=== PATIENT | male | born 1945 | race Caucasian/White ===

== ENCOUNTER 2021-07-29 06:08 | Emergency (ER) | payer MEDICARE ==
[~2021-07-29] VITALS: Ht 172.7 cm; Wt 68.0 kg
[2021-07-29] MEDS ORDERED: TRADJENTA5 MG PO (06:20)
[2021-07-29] MEDS ORDERED: JARDIANCE10 MG PO (06:20)
[2021-07-29] MEDS ORDERED: PIOGLITAZONE HC45 MG (06:21)
[2021-07-29 06:54] LABS: BASOPHILS ABSOLUTE AUTO 0.14 K/mm3 (0.00-0.23); BASOPHILS PERCENT AUTO 1 % (0-2); EOSINOPHILS ABSOLUTE AUTO 0.39 K/mm3 (0.00-0.68); EOSINOPHILS PERCENT AUTO 4 % (0-6); Hematocrit 46.6 % (37.0-53.0); IMMATURE GRAN ABSOLUTE AUTO 0.05 K/mm3 (0.00-0.10); IMMATURE GRAN PERCENT AUTO 1 % (0-1); LYMPHOCYTES ABSOLUTE AUTO 2.47 K/mm3 (0.84-5.20); LYMPHOCYTES PERCENT AUTO 25 % (21-46); MONOCYTES ABSOLUTE AUTO 0.65 K/mm3 (0.16-1.47); MONOCYTES PERCENT AUTO 7 % (4-13); Mean Corpuscular HGB 30.4 pg (26.0-34.0); Mean Corpuscular HGB Conc 34.3 g/dL (31.5-36.5); Mean Corpuscular Volume 89 fL (80-100); NEUTROPHILS ABSOLUTE AUTO 6.25 K/mm3 (1.96-9.15); NEUTROPHILS PERCENT AUTO 63 % (41-73); RDW Coefficient Variation 12.3 % (11.7-14.2); RDW Standard Deviation 40.1 fL (35.1-46.3); Red Blood Cell Count 5.26 M/mm3 (4.30-5.90); White Blood Cell Count 9.95 K/mm3 (4.00-11.30)
[2021-07-29 06:58] LABS: Alanine Aminotransfer (ALT/SGP 25 U/L (12-78); Albumin, Blood 3.6 g/dL (3.4-5.0); Albumin/Globulin Ratio 1.3 (0.8-1.8); Alk Phos 81 U/L (50-136); Anion Gap 6 mmol/L (6-16); Aspartate Aminotrans (AST/SGOT 15 U/L (12-37); Blood Urea Nitrogen 20 mg/dL (8-24); Bun/Creatinine Ratio 18.5 (12.0-20.0); CO2, Blood 25 mmol/L (21-32); Calcium, Blood 8.3 mg/dL (8.5-10.1); Chloride, Blood 109 mmol/L (98-108); Creatinine, Blood 1.08 mg/dL (0.60-1.20); Globulin, Blood 2.8 g/dL (2.2-4.0); Glomerular Filtration Rate >60 (60-); Glucose, Blood 190 mg/dL (70-99); Magnesium, Blood 2.1 mg/dL (1.6-2.4); Phosphorus, Blood 2.8 mg/dL (2.5-4.9); Platelet Count 17 K/mm3 (150-400); Potassium, Blood 4.1 mmol/L (3.5-5.5); Sodium, Blood 140 mmol/L (136-145); Total Protein, Blood 6.4 g/dL (6.4-8.2)
[2021-07-29] MEDS ORDERED: GABA300 PO (07:07)
== END 2021-07-29 08:40 | disposition home or self-care (01) ==
LOC: ER 06:08
PROVIDERS: Emergency Medicine
DX: R53.1 Weakness (principal); D75.839 Thrombocytosis, unspecified; E11.42 Type 2 diabetes mellitus with diabetic polyneuropathy; J44.9 Chronic obstructive pulmonary disease, unspecified; I10 Essential (primary) hypertension; Z79.84 Long term (current) use of oral hypoglycemic drugs
CPT/HCPCS: 80053; 83735; 84100; 85025; A9270; J7030

== ENCOUNTER 2023-09-08 19:38 | Emergency (ER) | payer MEDICARE ==
[~2023-09-08] VITALS: Ht 172.7 cm; Wt 49.9 kg
[~2023-09-08 19:38] MED LIST: GABA300 PO; JARDIANCE10 MG PO; MECL25 PO; PIOGLITAZONE HC45 MG; TRADJENTA5 MG PO
[2023-09-08 21:30] VITALS: BP 100/62
[2023-09-08] MEDS ORDERED: NS 1,000 ML IV SCH (22:35)
[2023-09-09] MEDS ORDERED: FentaNYL Citrate 50 MCG/ML 2 ML Injection IV ONE ×2 (09:45→12:05)
[2023-09-09] MEDS ORDERED: LORazepam 1 MG Tab PO PRN (13:05)
[2023-09-09] MEDS ORDERED: Meclizine HCl 25 MG Tab PO PRN (13:05)
[2023-09-09] MEDS ORDERED: Morphine Sulfate 20 MG/1ML 1 ML Oral Syringe PO PRN (13:10)
[2023-09-09] MEDS ORDERED: Gabapentin 300 MG Cap PO SCH (21:00)
[2023-09-10] MEDS ORDERED: Pioglitazone HCl 15 MG Tab PO SCH (09:00)
[2023-09-10] MEDS ORDERED: Empagliflozin 10 MG TAB PO SCH (09:00)
== END 2023-09-09 15:48 ==
LOC: ER 19:38
DX: R91.8 Other nonspecific abnormal finding of lung field (principal); R62.7 Adult failure to thrive; E11.9 Type 2 diabetes mellitus without complications; J44.9 Chronic obstructive pulmonary disease, unspecified; I10 Essential (primary) hypertension; Z87.891 Personal history of nicotine dependence; Z66 Do not resuscitate; Z88.0 Allergy status to penicillin; Z88.8 Allergy status to other drugs, medicaments and biological substances; Z79.899 Other long term (current) drug therapy; Z51.5 Encounter for palliative care
CPT/HCPCS: 96361; 96374; 96376; 99285-25; J3010; J7030